=== PATIENT | male | born 1960 | race Caucasian/White ===

== ENCOUNTER 2016-06-09 13:22 | Day surgery (SDC) | payer OTHER ==
[2016-06-05 09:16] LABS: HEMATOCRIT 48.4 % (40.0-51.0); HEMOGLOBIN 17.1 g/dL (13.6-17.8)
[2016-06-05 09:27] LABS: BUN (BLOOD UREA NITROGEN) 16 MG/DL (6-23); CALCIUM, SERUM 9.6 MG/DL (8.5-10.4); CHLORIDE, SERUM 98 MMOL/L (96-112); CO2 (CARBON DIOXIDE) 30 MMOL/L (24-34); CREATININE 1.05 MG/DL (0.70-1.30); GFR AFRICAN AMERICAN 92 ML/MIN (>=60); GFR NON AFRICAN AMERICAN 80 ML/MIN (>=60); POTASSIUM, SERUM 3.8 MMOL/L (3.5-5.3); SODIUM, SERUM 138 MMOL/L (135-148)
[2016-06-05 09:29] LABS: GLUCOSE, SERUM 281 MG/DL (60-99)
--- NOTE | ~2016-06-09 | OP ---
Record Of Operation [facility] [address] [place]. [address] NAME: TASIA BOLTON : 62 [place]US [place] [facility] [place]#: [id number] AGE: 56 ADM/REG DATE : 06/09/16 MR#: [id number] REPORT SERV DATE: 06/09/16 DICTATED BY: PATRICE ALY DATE: 06/09/16 REPORT STATUS : Draft TRANSCRIBED BY: MODArnel DATE: 06/09/16 DATE OF PROCEDURE: 06/09/2016 PREOPERATIVE DIAGNOSES: 1. Left cubital tunnel syndrome. 2. Left ulnar tunnel syndrome. 3. Left carpal tunnel syndrome. PROCEDURES: 1. Left cubital tunnel in situ release. 2. Left ulnar tunnel release. 3. Left carpal tunnel release. PHYSICIAN: Dr. Aly. PLOW AND BORING MACHINE TENDER: Elzbieta. ANESTHESIA: [place] block with MAC. ESTIMATED BLOOD LOSS: 3 mL. COMPLICATIONS: None. DISPOSITION: The patient tolerated the procedure well and was brought to the recovery room in stable condition. PROCEDURE NOTE: The patient was brought to the operating room and placed in a supine position. After IV sedation was given and a [place]her[place] block was administered by the Anesthesia Department, the left upper extremity distal to the tourniquet was prepped and draped in usual sterile manner. A surgical time-out was performed and all were in agreement. Cubital tunnel release was carried out by taking a 15-blade scalpel making a 4 to 5 cm longitudinal incision centered over the cubital tunnel which was approximately 1 to 2 cm posterior to the medial epicondyle. After the skin was incised, blunt dissection was carried out taking care to protect superficial nerves in the area and the cubital tunnel retinaculum was carefully identified and incised taking care to protect the underlying ulnar nerve. More proximally, a portion of the intermuscular septum and superficial fascia of the arm were divided and more distally, the confluence of the two heads of the FCU were divided. In doing so, the ulnar nerve was well decompressed in the region. The wound was irrigated and the skin was closed with deep and running 3-0 Monocryl suture. Ulnar and carpal tunnel releases were carried out through a single incision starting just 1 cm to 2 cm proximal to the volar wrist crease overlying Guyon's canal. The incision took a zigzag incision by the wrist and was directed distally in line with the ring finger until the proximal palmar crease was reached. Through this incision, initial blunt and sharp dissection was carried out ulnarly revealing the ulnar tunnel after incising the tight Record Of Operation [facility] [address] [place] [id number] NAME: TASIA BOLTON : 62 STATUS : [place] [facility] [place] PAT#: [id number] AGE: 56 ADM/REG DATE : 06/09/16 MR#: [id number] REPORT SERV DATE: 06/09/16 DICTATED BY: PATRICE ALY DATE: 06/09/16 REPORT STATUS : Draft TRANSCRIBED BY: SHAWNA DATE: 06/09/16 fibrous bands overlying the ulnar nerve. The ulnar nerve was identified and carefully released in zones 1, 2, and 3 and after adequate decompression, the wound was irrigated and attention was directed to the carpal tunnel release. Carpal tunnel release was carried out by taking a 15-blade scalpel making a longitudinal incision just radial to the hook of the hamate afterwards, adequate decompression was noted and the wound was irrigated and the skin was closed with deep and running Monocryl suture. Steri-Strips were applied to both sites. Tourniquet was eventually released and the dressings were applied to both arms. The patient was taken out of IV sedation and brought to the recovery room in stable condition. BRANDY/SHAWNA Patrice Aly M.D. / [id number] CC: Remedios Hernandez M.D.
[~2016-06-09 13:22] MED LIST: ACET500CAP PO; ALEVE220 MG PO; ASABAYER PO; C5 PO; COLCRYS0.6 MG PO; GLUCOPHAGE1000 MG PO; HUMALOG SC; LANTUS SC; LEVOTHYROXIN50 MCG PO; LOP50 PO; LOTE20 PO; LYRICA75 PO; MEVACOR40 MG PO; MOBIC7.5 PO; NEUR300 PO; NEUR600 PO; NIASPAN500 PO; OXYIR5 MG PO; PLAVIX PO; PROZ10 PO; TOPXL25 PO; ULTRAM50 PO; Z300 PO
== END 2016-06-09 20:21 | disposition home or self-care (01) ==
LOC: SDC 13:22
PROVIDERS: Orthopaedic Surgery Hand Surgery
PROC: 01N50ZZ Release Median Nerve, Open Approach (ICD-10-PCS; principal; 2016-06-09 15:45)
PROC: 01N40ZZ Release Ulnar Nerve, Open Approach (ICD-10-PCS; 2016-06-09 15:45)
DX: G56.02 Carpal tunnel syndrome, left upper limb (principal); G56.22 Lesion of ulnar nerve, left upper limb; I10 Essential (primary) hypertension; G47.33 Obstructive sleep apnea (adult) (pediatric); E11.9 Type 2 diabetes mellitus without complications; E03.9 Hypothyroidism, unspecified; F41.9 Anxiety disorder, unspecified; F32.9 Major depressive disorder, single episode, unspecified; I25.2 Old myocardial infarction; M19.90 Unspecified osteoarthritis, unspecified site; M10.9 Gout, unspecified; M51.36 Other intervertebral disc degeneration, lumbar region; I49.9 Cardiac arrhythmia, unspecified; Z86.14 Personal history of Methicillin resistant Staphylococcus aureus infection; Z98.890 Other specified postprocedural states; Z95.5 Presence of coronary angioplasty implant and graft; Z95.1 Presence of aortocoronary bypass graft; Z96.643 Presence of artificial hip joint, bilateral; Z87.891 Personal history of nicotine dependence
CPT/HCPCS: 80048; 82962; 85014; 85018; 93005; J0690; J2250; J3010